=== PATIENT | female | born 2000 | race Two or more races ===

== ENCOUNTER 2024-07-17 11:19 | Outpatient (AMB) | payer MEDICAID, SELFPAY ==
--- NOTE | 2024-07-17 11:38 | OBCLNT_ITS ---
Vital Signs 07/17/24 11:39 Weight 111.584 kg Weight Measurement Method Standing Scale BP 121/77 Blood Pressure Source Automatic Cuff Blood Pressure Location Left Upper Arm Position Sitting Respiration 18 Pulse 101 H Pulse Source Monitor Temp 97.2 F Temp Source Oral Pulse Oximetry (%) 97 Oxygen Delivery Method Room Air Allergies/Home Meds Allergies & Medications Allergies No Known Allergies Allergy (Verified 07/17/24 11:40) Medication Reconciliation nifedipine 30 mg tablet,extended release 24 hr (Procardia XL) 30 mg PO QDAY 30 days #30 tabs 04/04/20 [Rx Confirmed 07/17/24] aspirin 81 mg tablet,delayed release (Adult Aspirin Regimen) 81 mg PO QDAY #60 tabs 07/17/24 [Rx] Intake Visit Data Collection New Patient or Established: New Patient not seen in past 3 years at [facility] (considered New) Reason for Visit:: OBI Seen by Clinical Staff ONLY (RN/MA): No Process Chemist Required: No Do You Feel Safe at Home: Yes Authorities Contacted: N/A PCP or OBGYN visit in last 3 months: Yes Hx Now: Yes Are you currently on any form of Control: No Pain Present Currently: No Pain Scale Used: Melton-Morfin/Numerical Pain scale:: 0 Smoking Status Smoking Status: Never smoker Questionnaires Covid-19 Vaccine Questionnaire Has patient been vacinated for Covid-19 Have you been vacinated for Covid-19: Yes PHQ-9 PHQ-2 Over the last 2 weeks, how often have you been bothered by any of the following problems? 1. Little interest or pleasure in doing things: not at all 2. Feeling down, depressed, or hopeless: not at all Total score: 0 PHQ-9 3. Trouble falling or staying asleep, or sleeping too much: Not at all 4. Feeling tired or having little energy: Not at all 5. Poor appetite or overeating: Not at all 6. Feeling bad about yourself - or that you are a failure or have let yourself or your family down: Not at all 7. Trouble concentrating on things, such as reading the newspaper or watching television: Not at all 8. Moving or speaking so slowly that other people could have noticed? - Or the opposite - being so fidgety or restless that you have been moving around a lot more than usual: not at all 9. Thoughts that you would be better off or of hurting yourself in some way: Not at all Total score: 0 If you checked off any problems, how difficult have these problems made it for you to do your work, take care of things at home, or get along with other people?: not difficult at all Source: Developed by Drs. Satnam Rodriguez, Nona Driscoll, Neptali Duran and colleagues, with an educational shelby from [employer]. Depression screen completed yes Social History Living Situation History Marital Status: Lives With: Family Housing: House Tobacco History Smoking Status: Never smoker Second Hand Smoke Exposure: No Alcohol History Alcohol Intake: Never Domestic Abuse History Do You Feel Safe at Home: Yes Past Medical History Past Medical History Have you ever been diagnosed with any of the following: Neurological Problems Seizures: No Cardiology Problems Congestive Heart Failure: No Respiratory Problems Chronic Obstructive Pulmonary Disease (COPD): No Asthma: Yes Stomache/Intestinal Problems Hepatitis: No Genital/Urinary Problems Renal Disease: No Endocrine Problems Diabetes Mellitus Type 1: No Diabetes Mellitus Type 2: No Other Problems Hospitalization: No Down Syndrome: No Developmental Delay: No Shingles: No Falls: No Blood Transfusions: No Blood Transfusion Reaction: No Anesthesia Reactions: No Organ Transplant: No Chemotherapy: No Radiation Therapy: No Hyperbaric Therapy: No MRSA: No VRSA: No Vancomycin-Resistant Enterococci: No Human Immunodeficiency Virus (HIV): No Chicken Pox: No Measles: No Mumps: No Rubella (Sami Measles): No Pertussis: No Clostridium Difficile: No Cancer: No History of Present Illness HPI Narrative 23-year-old 2 para 1 for initial OB appointment. Patient is a transfer from [facility]. Her last. December 17, 2023. This gives due date September 20, 2024. Patient reports that the due dates she is going by is September 27, 2024. She also states that at her last [facility] visit they told her her due date was September 24, 2024. So patient is 29 and 6 weeks by due date September 27, 2024. She has a history of a positive CF carrier with this . And she has a follow-up appointment August 14, 2024 to evaluate growth. Denies social habits. . Denies chronic illness. Patient reports that she had gestational hypertension with her last at the end of it. She also reports that prior to her LMP her family practice told her she was prediabetic. x 1 for arrest of de scent. Denies social habits. Reports good movement. Denies any complaints. Patient has an appointment with Dr. Pineda today. She will ask for release of records and will get Tdap. OB Initial Visit Menstrual History Menstrual reliability: definite Flow: normal Menstrual regularity: regular Monthly: Yes On control pills at conception: No OB History : 2 Para: 1 Hx # Pregnancies: 0 Hx Total # of Abortions (Spontaneous & Elective): 0 # of Living Children: 1 Delivery History 1st : date: 03/27/20 sex: male Delivery type: Delivery complications: none History of depression before or after : No Infection History & Risk Evaluation History of STDs: none HIV risk evaluation: low risk Hepatitis B risk evaluation: low risk Patient or partner has history of Genital Herpes: No Varicella/chicken pox status: immunized Genetic Screening & History Genetic Screening/Teratology Counseling - Includes patient, baby's father, or anyone in either family with: 1. Patient's age 35 years or older as of estimated date of delivery: No 2. Thalassemia (Arabic, Portuguese, Mediterranean, or Background); MCV less than 80: No 3. Neural Tube Defect (Meningomyelocele, Spina Bifida, or Anencephaly): No 4. Congenital Heart Defect: No 5. Down Syndrome: No 6. Timothy-Sachs (Ashkenazi Synagogue, Cajun, Northern Irish [place]): No 7. Royce Disease (Ashkenazi Synagogue): No 8. Familial Dysautonomia (Ashkenazi Synagogue): No 9. Sickle Cell Disease or Trait (): No 10. Hemophilia or other blood disorders: No 11. Muscular Dystrophy: No 12. Cystic Fibrosis: Yes (+cf carrier this ) 13. Monroe's Chorea: No 14. Mental Retardation/Autism: No 15. Other inherited genetic or chromosomal disorder: Yes (+CF carrier this ) 16. Maternal Metabolic Disorder (EG,TYPE 1 Diabetes, PKU): No 17. Patient or baby's father had a child with defects not listed above: No 18. Recurrent loss or a stillbirth: No 19. Medications (including supplements, vitamins, herbs or otc drugs)/illicit/recreational drugs/alcohol since last menstrual period: Yes 20. Any other: Yes (prenatals) Infection History 1. Live with someone with TB or exposed to TB: No 2. Rash or viral illness since last menstrual period: No 3. Hepatitis B,C: No Other (see comments) Source: [employer] Review of Systems Review of Systems Systems Reviewed: All systems reviewed, normal except as documented Exam General Limitations: no limitations General Appearance: alert, in no apparent distress, comfortable, cooperative, healthy appearing, well developed and well groomed Chest Chest inspection: Present normal inspection and symmetric chest wall rise Resp Respiratory exam: Present normal lung sounds bilaterally Card Cardiovascular exam: Present regular rate, normal rhythm and normal heart sounds Abdominal Abdominal exam: Present soft, normal bowel sounds and scar (low transverse) Psych Psychiatric exam: Present normal affect and normal mood Skin Skin exam: Present warm, dry, intact and normal color Assessment & Plan Diagnosis / Problem List (1) Encounter for supervision of other normal , third trimester: Status: Acute (2) Previous section: Status: Acute Plan Follow-up with maternal- medicine August 14. Patient will keep OB appointment with Dr. Edwin rosenbaum. Medical release for records. Obtain started on low-dose baby aspirin. Patient will get Tdap at a visit with Dr. Chapin rosenbaum discussed labor precautions. Increase fluids. Return in 2 weeks OB check Office Procedures OB Clinic LOC & Office Proc's Nursing/Assessment Patient Status: Initial/New Patient OB Clinic Nursing Assessment: BP Monitoring, Medication Reconciliation, Update PMH in EMR and Vital Signs OB Clinic Coordination of Care: Consent,records obtained, informed consent, Education Simp Pt/Fam and Staff clarify orders New Patient Charge New Patient Point Assignment: [id number] New Patient Point Charge: MANAGER TARGET Level 3 ([id number])
[2024-07-17 11:39] VITALS: BP 121/77; PULSE 101; RESP 18; TEMP 36.2; O2SAT 97
== END 2024-07-17 11:49 | disposition home or self-care (01) ==
LOC: HODSOBC 11:19
PROVIDERS: Supervising Provider Obstetrics & Gynecology; Visit Provider Advanced Practice Midwife
DX: O09.293 Supervision of pregnancy with other poor reproductive or obstetric history, third trimester (principal); Z3A.29 29 weeks gestation of pregnancy; O34.219 Maternal care for unspecified type scar from previous cesarean delivery; Z86.32 Personal history of gestational diabetes; Z87.59 Personal history of other complications of pregnancy, childbirth and the puerperium
CPT/HCPCS: 99203; G0463

== ENCOUNTER 2024-07-30 09:47 | Outpatient (AMB) | payer MEDICAID, SELFPAY ==
--- NOTE | 2024-07-30 10:00 | AMB.OBVISIT ---
Vital Signs 07/30/24 10:06 Weight 111.3 kg Weight Measurement Method Standing Scale BP 117/72 Blood Pressure Source Automatic Cuff Blood Pressure Location Left Upper Arm Position Sitting Respiration 18 Pulse 105 H Pulse Source Monitor Temp 96.8 F Temp Source Oral Pulse Oximetry (%) 98 Oxygen Delivery Method Room Air Allergies/Home Meds Allergies & Medications Allergies No Known Allergies Allergy (Verified 08/06/24 11:08) Medication Reconciliation nifedipine 30 mg tablet,extended release 24 hr (Procardia XL) 30 mg PO QDAY 30 days #30 tabs 04/04/20 [Rx Confirmed 08/06/24] aspirin 81 mg tablet,delayed release (Adult Aspirin Regimen) 81 mg PO QDAY #60 tabs 07/17/24 [Rx Confirmed 08/06/24] Intake Visit Data Collection New Patient or Established: New Patient not seen in past 3 years at [facility] (considered New) Reason for Visit:: - Routine follow-up OB appointment Seen by Clinical Staff ONLY (RN/MA): No Regional Commercial Sales Manager Required: No Do You Feel Safe at Home: Yes Authorities Contacted: N/A PCP or OBGYN visit in last 3 months: Yes Hx Now: Yes Are you currently on any form of Control: No Pain Present Currently: No Pain Scale Used: Melton-Morfin/Numerical Pain scale:: 0 Smoking Status Smoking Status: Never smoker Questionnaires Covid-19 Vaccine Questionnaire Has patient been vacinated for Covid-19 Have you been vacinated for Covid-19: Yes PHQ-9 PHQ-2 Over the last 2 weeks, how often have you been bothered by any of the following problems? 1. Little interest or pleasure in doing things: not at all 2. Feeling down, depressed, or hopeless: not at all Total score: 0 PHQ-9 3. Trouble falling or staying asleep, or sleeping too much: Not at all 4. Feeling tired or having little energy: Not at all 5. Poor appetite or overeating: Not at all 6. Feeling bad about yourself - or that you are a failure or have let yourself or your family down: Not at all 7. Trouble concentrating on things, such as reading the newspaper or watching television: Not at all 8. Moving or speaking so slowly that other people could have noticed? - Or the opposite - being so fidgety or restless that you have been moving around a lot more than usual: not at all 9. Thoughts that you would be better off or of hurting yourself in some way: Not at all Total score: 0 If you checked off any problems, how difficult have these problems made it for you to do your work, take care of things at home, or get along with other people?: not difficult at all Source: Developed by Drs. Satnam Rodriguez, Nona Driscoll, Neptali Duran and colleagues, with an educational shelby from [email or web address]. Depression screen completed yes Social History Living Situation History Lives With: Family Housing: House Tobacco History Smoking Status: Never smoker Second Hand Smoke Exposure: No Alcohol History Alcohol Intake: Never Domestic Abuse History Do You Feel Safe at Home: Yes Past Medical History Past Medical History Have you ever been diagnosed with any of the following: Neurological Problems Seizures: No Cardiology Problems Congestive Heart Failure: No Respiratory Problems Chronic Obstructive Pulmonary Disease (COPD): No Asthma: Yes Stomache/Intestinal Problems Hepatitis: No Genital/Urinary Problems Renal Disease: No Endocrine Problems Diabetes Mellitus Type 1: No Diabetes Mellitus Type 2: No Other Problems Hospitalization: No Down Syndrome: No Developmental Delay: No Shingles: No Falls: No Blood Transfusions: No Blood Transfusion Reaction: No Anesthesia Reactions: No Organ Transplant: No Chemotherapy: No Radiation Therapy: No Hyperbaric Therapy: No MRSA: No VRSA: No Vancomycin-Resistant Enterococci: No Human Immunodeficiency Virus (HIV): No Chicken Pox: No Measles: No Mumps: No Rubella (Frisian Measles): No Pertussis: No Clostridium Difficile: No Cancer: No History of Present Illness HPI Narrative - Marlene Gauthier is a 23-year-old presenting for a follow-up OB appointment at 32 weeks and 2 days gestation. - Patient transferred care from [facility] on December 17, 2023. - details: - Due date initially given as September 20, then adjusted to September 27 - Different due date of September 24 given at [facility] appointment - Patient is a positive cystic fibrosis carrier in this - Awaiting results of genetic testing for both patient and father of the baby - Testing was performed on July 14, 2024 - Results expected on August 07, 2024 - Obstetrical history: - One previous section in 2019 - Patient reports the is going good - Denies any specific complaints or concerns at this visit No contractions/ LOF/VB, reports good FM No SOSA/VC/RUQ/Epig pain Care OB Visit Log OB Flowsheet Initial Weight: Not Recorded Date <del>?</del> EGA Weight BP Alb Glu CTX Pres Fundal ht FHR Mov Dilation Station Effacement Hx Notes Visit Note 07/17/24 <del>?</del> 30w 3d 111.584 kg 121/77 absent unknown 30 151 active 23-year-old 2 para 1. 39 weeks 6. Transfer of care from Dr. Pineda's office. 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 Dr. Samson referred her to [facility] for follow-up. And patient has a follow-up visit with [facility] August 14. Last. According to patient was December 17, 2023. However patient reports that EDC per Dr. Samson and per maternal- medicine is September 27, 2024 medical release today. Patient will get Tdap with Dr. Samson. Discussed labor precautions. Keep maternal- medicine follow-up in [place]. Start low-dose baby aspirin. Patient reported that she has not had any abnormal labs with the . Return in 2 weeks OB check with OB because of previous . 07/30/24 <del>?</del> 32w 2d 111.3 kg 117/72 145 Marlene Gauthier, at 32 weeks and 2 days gestation, presents for routine follow-up OB care. Transferred from [facility] on 12/17/2023. Reports is progressing well with no current complaints. heart rate auscultated at 145 bpm. History of prior section in 2019. Multiple EDDs noted: 09/20, 09/24 (per MFM), and 09/27. Patient is a cystic fibrosis carrier; testing for the father was completed on 07/14/2024 with results pending by 08/07/2024. Recent labs reviewed, including 1-hour GTT of 70 mg/dL and normal serologies. Plan: Book date Follow up in 2 weeks, then weekly thereafter Await CF carrier screening results for father (due 08/07) Repeat growth evaluation with MFM scheduled for 08/14 Continue routine monitoring MICHELLE Calculator Estimated Delivery Date Method Current WG Current Estimate 09/22/24 LMP (Certain) 34w 1d Office Procedures OB Clinic LOC & Office Proc's Nursing/Assessment Patient Status: Initial/New Patient OB Clinic Nursing Assessment: BP Monitoring, Medication Reconciliation, Update PMH in EMR and Vital Signs OB Clinic Coordination of Care: Consent,records obtained, informed consent, Education Simp Pt/Fam, Lab and Imaging orders, Results/Orders obtained and Staff clarify orders Special Needs: Heart tones New Patient Charge New Patient Point Assignment: [id number] New Patient Point Charge: REFINERY PROCESS ENGINEER Level 4 ([id number]) Assessment & Plan Diagnosis / Problem List (1) Previous section: Status: Acute (2) Encounter for supervision of other normal , third trimester: Status: Acute Plan Problem List - , 32 weeks and 2 days gestation - Previous section - Cystic fibrosis carrier status Assessment - at 32 weeks 2 days gestation - History of previous section in 2019 - Positive cystic fibrosis carrier status - Multiple estimated due dates: September 20, September 24, and September 27 - labs from April 05, 2023: O positive blood type, hemoglobin A1C 5.7, rubella immune, VDRL non-reactive, HIV negative, GBS negative - Urine drug screen negative - One-hour glucose tolerance test result: 70 mg/dL - heart rate 145 bpm, noted as normal Plan - Book date: September 15 at 12:30 PM - Follow up in 2 weeks - After next appointment, follow up weekly - Await cystic fibrosis carrier screening results for patient and father of baby, expected on August 07 - Repeat appointment with MFM on August 14 to evaluate growth Educated the patient on labor signs, including regular contractions, lower back pain, and changes in vaginal discharge. Advised avoiding heavy lifting and getting adequate rest. Instructed to contact the office immediately if any signs occur. Discussed the importance of a balanced diet rich in folic acid, iron, and calcium, and provided a list of recommended and to-avoid foods. Emphasized avoiding high-sugar foods to reduce gestational diabetes risk. Encouraged hydration and frequent, small meals for energy..
[2024-07-30 10:06] VITALS: BP 117/72; PULSE 105; RESP 18; TEMP 36; O2SAT 98
== END 2024-07-30 10:20 | disposition home or self-care (01) ==
LOC: HODSOBC 09:47
PROVIDERS: PCP Obstetrics & Gynecology; Referring Provider Obstetrics & Gynecology; Supervising Provider Obstetrics & Gynecology; Visit Provider Obstetrics & Gynecology
DX: O09.293 Supervision of pregnancy with other poor reproductive or obstetric history, third trimester (principal); O34.219 Maternal care for unspecified type scar from previous cesarean delivery; O09.893 Supervision of other high risk pregnancies, third trimester; Z3A.32 32 weeks gestation of pregnancy; Z14.1 Cystic fibrosis carrier
CPT/HCPCS: 99204; G0463

== ENCOUNTER 2024-08-06 10:56 | Outpatient (AMB) | payer MEDICAID, SELFPAY ==
--- NOTE | 2024-08-06 11:03 | OBCLNT_ITS ---
Vital Signs 08/06/24 11:07 Height 1.63 m Height Method Stated Weight 113.2 kg Weight Measurement Method Standing Scale BMI 42.8 BP 137/83 H Blood Pressure Source Automatic Cuff Blood Pressure Location Left Upper Arm Position Sitting Respiration 18 Pulse 106 H Pulse Source Monitor Temp 97.2 F Temp Source Oral Pulse Oximetry (%) 98 Oxygen Delivery Method Room Air Allergies/Home Meds Allergies & Medications Allergies No Known Allergies Allergy (Verified 11/03/24 11:28) Medication Reconciliation Unobtainable 11/03/24 [History Confirmed 11/03/24] Intake Visit Data Collection New Patient or Established: Established Patient (seen at [facility] within 3 years) Reason for Visit:: OB CHECK FOLLOW UP Seen by Clinical Staff ONLY (RN/MA): No Store Coordinator Required: No Do You Feel Safe at Home: Yes Authorities Contacted: N/A PCP or OBGYN visit in last 3 months: Yes Date of Last PCP or OBGYN visit: 07/30/24 Hx Now: Yes Are you currently on any form of Control: No Pain Present Currently: No Pain Scale Used: Melton-Morfin/Numerical Pain scale:: 0 Smoking Status Smoking Status: Never smoker Questionnaires Covid-19 Vaccine Questionnaire Has patient been vacinated for Covid-19 Have you been vacinated for Covid-19: Yes PHQ-9 PHQ-2 Over the last 2 weeks, how often have you been bothered by any of the following problems? 1. Little interest or pleasure in doing things: not at all 2. Feeling down, depressed, or hopeless: not at all Total score: 0 PHQ-9 3. Trouble falling or staying asleep, or sleeping too much: Not at all 4. Feeling tired or having little energy: Not at all 5. Poor appetite or overeating: Not at all 6. Feeling bad about yourself - or that you are a failure or have let yourself or your family down: Not at all 7. Trouble concentrating on things, such as reading the newspaper or watching television: Not at all 8. Moving or speaking so slowly that other people could have noticed? - Or the opposite - being so fidgety or restless that you have been moving around a lot more than usual: not at all 9. Thoughts that you would be better off or of hurting yourself in some way: Not at all Total score: 0 If you checked off any problems, how difficult have these problems made it for you to do your work, take care of things at home, or get along with other people?: not difficult at all Source: Developed by Drs. Satnam Rodriguez, Nona Driscoll, Neptali Duran and colleagues, with an educational shelby from [employer]. 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 - Patient transferred care from Dr. Pineda to the current practice. - Finalized due date is September 24, based on maternal medicine ultrasound. - Patient is a known cystic fibrosis carrier. - Reports normal movement. No contractions/ LOF/VB, reports good FM No SOSA/VC/RUQ/Epig pain Exam General General Appearance: alert, in no apparent distress and healthy appearing Head Head exam: atraumatic Neck Neck exam: Present normal inspection and trachea midline Chest Chest inspection: Present normal inspection and symmetric chest wall rise External exam: Present normal external exam; Absent tenderness Neuro Neurological exam: Present oriented X3 Psych Psychiatric exam: Present normal affect and normal mood Office Procedures OB Clinic LOC & Office Proc's Nursing/Assessment Patient Status: Established Patient OB Clinic Nursing Assessment: Medication Reconciliation, Update PMH in EMR and Vital Signs OB Clinic Coordination of Care: Education Complex Pt/Fam, Consent,records obtained, informed consent and Staff clarify orders Special Needs: Heart tones Established Patient Charge Established Patient Point Assignment: 95 Established Patient Point Charge: EP Level 3 (80-115) Assessment & Plan Diagnosis / Problem List (1) Other acute postprocedural pain: Status: Acute (2) Hx of preeclampsia, prior , currently : Status: Acute (3) Previous section: Status: Acute Plan Problem List - , 33 weeks and 2 days - Cystic fibrosis carrier status Assessment - 1 para 1 at 33 weeks and 2 days gestation - Scheduled for repeat on September 17 at 12:30 PM - Cystic fibrosis carrier status confirmed for patient, father of child tested negative - heart rate 146 bpm, noted as normal Plan - Repeat scheduled for September 17 at 12:30 PM - Growth ultrasound with maternal medicine on August 29 - Follow-up appointment in 2 weeks - Weekly appointments to begin after the next follow-up
[2024-08-06 11:07] VITALS: BP 137/83; PULSE 106; RESP 18; TEMP 36.2; O2SAT 98; BMI 42.8
== END 2024-08-06 11:17 | disposition home or self-care (01) ==
LOC: HODSOBC 10:56
PROVIDERS: PCP Obstetrics & Gynecology; Referring Provider Obstetrics & Gynecology; Supervising Provider Obstetrics & Gynecology; Visit Provider Obstetrics & Gynecology
DX: O09.293 Supervision of pregnancy with other poor reproductive or obstetric history, third trimester (principal); O34.219 Maternal care for unspecified type scar from previous cesarean delivery; O09.893 Supervision of other high risk pregnancies, third trimester; Z3A.33 33 weeks gestation of pregnancy; Z14.1 Cystic fibrosis carrier; Z87.59 Personal history of other complications of pregnancy, childbirth and the puerperium
CPT/HCPCS: 99213; G0463

== ENCOUNTER 2024-08-21 14:54 | Outpatient (AMB) | payer MEDICAID, SELFPAY ==
[2024-08-21 15:15] VITALS: BP 117/80; PULSE 90; RESP 18; TEMP 36.4; O2SAT 97; BMI 42.4
--- NOTE | 2024-08-21 15:15 | OBCLNT_ITS ---
Vital Signs 08/21/24 15:15 Height 1.63 m Height Method Stated Weight 112.094 kg Weight Measurement Method Standing Scale BMI 42.4 BP 117/80 Blood Pressure Source Automatic Cuff Blood Pressure Location Right Upper Arm Position Sitting Respiration 18 Pulse 90 Pulse Source Monitor Temp 97.6 F Temp Source Temporal Artery Scan Pulse Oximetry (%) 97 Oxygen Delivery Method Room Air Allergies/Home Meds Allergies & Medications Allergies No Known Allergies Allergy (Verified 08/21/24 15:16) Medication Reconciliation nifedipine 30 mg tablet,extended release 24 hr (Procardia XL) 30 mg PO QDAY 30 days #30 tabs 04/04/20 [Rx Confirmed 08/21/24] aspirin 81 mg tablet,delayed release (Adult Aspirin Regimen) 81 mg PO QDAY #60 tabs 07/17/24 [Rx Confirmed 08/21/24] Intake Visit Data Collection New Patient or Established: Established Patient (seen at [facility] within 3 years) Reason for Visit:: OBC / GBS Seen by Clinical Staff ONLY (RN/MA): No Hand Developer Required: No Do You Feel Safe at Home: Yes Authorities Contacted: N/A PCP or OBGYN visit in last 3 months: Yes Date of Last PCP or OBGYN visit: 08/06/24 Hx Now: Yes Are you currently on any form of Control: No Pain Present Currently: No Smoking Status Smoking Status: Never smoker Questionnaires Covid-19 Vaccine Questionnaire Has patient been vacinated for Covid-19 Have you been vacinated for Covid-19: Yes PHQ-9 PHQ-2 Over the last 2 weeks, how often have you been bothered by any of the following problems? 1. Little interest or pleasure in doing things: not at all PHQ-9 3. Trouble falling or staying asleep, or sleeping too much: Not at all 4. Feeling tired or having little energy: Not at all 5. Poor appetite or overeating: Not at all 6. Feeling bad about yourself - or that you are a failure or have let yourself or your family down: Not at all 7. Trouble concentrating on things, such as reading the newspaper or watching television: Not at all 8. Moving or speaking so slowly that other people could have noticed? - Or the opposite - being so fidgety or restless that you have been moving around a lot more than usual: not at all 9. Thoughts that you would be better off or of hurting yourself in some way: Not at all If you checked off any problems, how difficult have these problems made it for you to do your work, take care of things at home, or get along with other people?: not difficult at all Source: Developed by Drs. Satnam Rodriguez, Nona Driscoll, Neptali Duran and colleagues, with an educational shelby from [employer]. 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 Patient has a history of prior delivery. No contractions, LOF, VB and reports good FM. Denies SOSA, VC, and epigastric pain. - Marlene Gauthier is a 23-year-old at 35 weeks and 3 days gestation presenting for a visit. - Patient transferred care from [facility] 2 hours prior to this visit. - Cystic fibrosis carrier test screening was positive in this . - Father of the baby tested negative for cystic fibrosis. - Adjusted due date is September 27. - History of previous section. - Scheduled for repeat on September 15 at 12:30 PM. - Patient reports: - No contractions - Active movement - Normal heart rate of 155 bpm noted during visit. Care OB Visit Log OB Flowsheet Initial Weight: Not Recorded Date -?-?--?-?-?-?-?-?-?-?-?-?- EGA Weight BP Alb Glu CTX Pres Fundal ht FHR Mov Dilation Station Effacement Hx Notes Visit Note 07/17/24 -?-?-?-?-?-?-?-?-?-?-?-?- 30w 3d 111.584 kg 121/77 absent unknown 30 151 active 23-year-old 2 para 1. 39 weeks 6. Transfer of care from Dr. Pineda's office. 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 Dr. Samson referred her to [facility] for follow-up. And patient has a follow-up visit with [facility] August 14. Last. According to patient was December 17, 2023. However patient reports that EDC per Dr. Samson and per maternal- medicine is September 27, 2024 medical release today. Patient will get Tdap with Dr. Samson. Discussed labor precautions. Keep maternal- medicine follow-up in [place]. Start low-dose baby aspirin. Patient reported that she has not had any abnormal labs with the . Return in 2 weeks OB check with OB because of previous . 07/30/24 -?-?-?-?-?-?-?-?-?-?-?-?- 32w 2d 111.3 kg 117/72 145 Marlene Gauthier, at 32 weeks and 2 days gestation, presents for routine follow-up OB care. Transferred from [facility] on 12/17/2023. Reports is progressing well with no current complaints. heart rate auscultated at 145 bpm. History of prior section in 2019. Multiple EDDs noted: 09/20, 09/24 (per M), and 09/27. Patient is a cystic fibrosis carrier; testing for the father was completed on 07/14/2024 with results pending by 08/07/2024. Recent labs reviewed, including 1-hour GTT of 70 mg/dL and normal serologies. Plan: Book date Follow up in 2 weeks, then weekly therea fter Await CF carrier screening results for f ather (due 08/07) Repeat growth evaluation with [facility] schedu led for 08/14 Continue routine monitoring 08/21/24 -?-?-?-?-?-?-?-?-?-?-?-?- 35w 3d 112.094 kg 117/80 at 35 weeks and 3 days gestation presents for routine visit. Transferred care from [facility] earlier today. Patient is a cystic fibrosis carrier; partner has tested negative. History of previous section. Adjusted MICHELLE is 09/27/24. No contractions, LOF, VB; reports good movement. FHT 155 bpm, normal. Plan: Problem List: 35w3d, cystic fi brosis carrier (partner negative), prior section. Repeat section scheduled for at 12:30 PM; patient to arrive at 10:00 AM. Continue weekly visits until delivery. Follow-up visit scheduled for next week. Routine counseling provided including labor and preeclampsia precautions, delivery preparation, and ongoing movement monitoring. MICHELLE Calculator Estimated Delivery Date Method Current WG Current Estimate 09/22/24 LMP (Certain) 35w 3d Exam General General Appearance: alert, in no apparent distress and healthy appearing Head Head exam: atraumatic Neck Neck exam: Present normal inspection and trachea midline Chest Chest inspection: Present normal inspection and symmetric chest wall rise External exam: Present normal external exam; Absent tenderness Neuro Neurological exam: Present oriented X3 Psych Psychiatric exam: Present normal affect and normal mood Office Procedures OB Clinic LOC & Office Proc's Nursing/Assessment Patient Status: Established Patient OB Clinic Nursing Assessment: Medication Reconciliation, Update PMH in EMR and Vital Signs OB Clinic Coordination of Care: Complex Care and Chronic Disease 1-5, Consent,records obtained, informed consent, Education Simp Pt/Fam, Lab and Imaging orders and Staff clarify orders Special Needs: Heart tones Established Patient Charge Established Patient Point Assignment: 130 Established Patient Point Charge: EP Level 4 (120-155) Assessment & Plan Diagnosis / Problem List (1) Hx of preeclampsia, prior , currently : Status: Acute (2) Previous section: Status: Acute (3) Encounter for supervision of other normal , third trimester: Status: Acute Plan Problem List - , 35 weeks and 3 days gestation - Cystic fibrosis carrier - Previous section Assessment at 35 weeks 3 days gestation presenting for routine visit. Patient is a known cystic fibrosis carrier, with negative partner screening. History of previous section. Adjusted due date is September 27. heart rate auscultated at 155 bpm, noted as normal. Patient reports no contractions and active movement. Scheduled for repeat section on September 15 at 1230. Plan - Repeat section scheduled for September 15 at 12:30 PM - Patient to arrive at the hospital at 10:00 AM on the day of the procedure - Weekly visits until delivery - Follow-up appointment scheduled for next week 1. Progress Reviewed gestational age, growth, and heart rate. Planned frequent visits (every 2 weeks until 36 weeks, then weekly). 2. Instructed patient to monitor movements and report decreases immediately. 3. Testing Counseled on routine third-trimester labs per guidelines. Discussed potential need for ultrasound or monitoring based on risk factors. 4. Preeclampsia Precaution Educated on preeclampsia signs: severe headache, vision changes, right upper quadrant pain, sudden swelling. Advised urgent reporting of symptoms and discussed blood pressure monitoring if high risk. 5. Labor Precautions Reviewed labor signs: regular contractions, pelvic pressure, back pain, bleeding, or fluid leakage. Instructed to seek immediate care for these symptoms. 6. Lifestyle and Delivery Preparation Reinforced vitamins, nutrition, and safe activity. Discussed plan, pain management, and . Advised on labor preparation (e.g., hospital bag) and expectations. 7. Psychosocial Support Assessed emotional well-being and offered resources for mental health or parenting support.
== END 2024-08-21 15:28 | disposition home or self-care (01) ==
LOC: HODSOBC 14:54
PROVIDERS: PCP Obstetrics & Gynecology; Referring Provider Obstetrics & Gynecology; Supervising Provider Obstetrics & Gynecology; Visit Provider Obstetrics & Gynecology
DX: O09.293 Supervision of pregnancy with other poor reproductive or obstetric history, third trimester (principal); Z3A.35 35 weeks gestation of pregnancy; O34.219 Maternal care for unspecified type scar from previous cesarean delivery; Z87.59 Personal history of other complications of pregnancy, childbirth and the puerperium; Z14.1 Cystic fibrosis carrier
CPT/HCPCS: 99214; G0463

== ENCOUNTER 2024-08-28 13:02 | Outpatient (AMB) | payer MEDICAID, SELFPAY ==
[2024-08-28 13:23] VITALS: BP 120/82; PULSE 101; RESP 20; TEMP 36.1; O2SAT 98; BMI 42.5
--- NOTE | 2024-08-28 13:23 | OBCLNT_ITS ---
Vital Signs 08/28/24 13:23 Height 1.63 m Height Method Stated Weight 113.171 kg Weight Measurement Method Standing Scale BMI 42.5 BP 120/82 Blood Pressure Source Automatic Cuff Blood Pressure Location Right Upper Arm Position Sitting Respiration 20 Pulse 101 H Pulse Source Monitor Temp 96.9 F Temp Source Oral Pulse Oximetry (%) 98 Oxygen Delivery Method Room Air Allergies/Home Meds Allergies & Medications Allergies No Known Allergies Allergy (Verified 08/28/24 13:24) Medication Reconciliation nifedipine 30 mg tablet,extended release 24 hr (Procardia XL) 30 mg PO QDAY 30 days #30 tabs 04/04/20 [Rx Confirmed 08/28/24] aspirin 81 mg tablet,delayed release (Adult Aspirin Regimen) 81 mg PO QDAY #60 tabs 07/17/24 [Rx Confirmed 08/28/24] Intake Visit Data Collection New Patient or Established: Established Patient (seen at [facility] within 3 years) Reason for Visit:: CARE Seen by Clinical Staff ONLY (RN/MA): No 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 1. Little interest or pleasure in doing things: not at all 2. Feeling down, depressed, or hopeless: not at all Total score: 0 PHQ-9 3. Trouble falling or staying asleep, or sleeping too much: Not at all 4. Feeling tired or having little energy: Not at all 5. Poor appetite or overeating: Not at all 6. Feeling bad about yourself - or that you are a failure or have let yourself or your family down: Not at all 7. Trouble concentrating on things, such as reading the newspaper or watching television: Not at all 8. Moving or speaking so slowly that other people could have noticed? - Or the opposite - being so fidgety or restless that you have been moving around a lot more than usual: not at all 9. Thoughts that you would be better off or of hurting yourself in some way : Not at all Total score: 0 Source: Developed by Drs. Satnam Rodriguez, Nona Driscoll, Neptali Duran and colleagues, with an educational shelby from [employer]. 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 Patient has a history of prior delivery. No contractions, LOF, VB and reports good FM. Denies SOSA, VC, and epigastric pain. - Marlene Gauthier is a 23-year-old at 36 weeks and 2 days gestation presenting for a routine visit. - Patient has a history of: - Cystic fibrosis carrier status - Previous section - Scheduled for repeat section on September 15, 2024 - Denies contractions - Reports active movement - Recently monitored at the hospital - Patient states everything looked fine there - heart rate noted to be 148 bpm, described as normal Care OB Visit Log OB Flowsheet Initial Weight: Not Recorded Date -?-?-?-?-?-?-?-?-?-?-?-?- EGA Weight BP Alb Glu CTX Pres Fundal ht FHR Mov Dilation Station Effacement Hx Notes Visit Note 07/17/24 -?-?-?-?-?-?-?-?-?-?-?-?- 30w 3d 111.584 kg 121/77 absent unknown 30 151 active 23-year-old 2 para 1. 39 weeks 6. Transfer of care from Dr. Pineda's office. 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 Dr. Samson referred her to [facility] for follow-up. And patient has a follow-up visit with [facility] August 14. Last. According to patient was December 17, 2023. However patient reports that EDC per Dr. Samson and per maternal- medicine is September 27, 2024 medical release today. Patient will get Tdap with Dr. Samson. Discussed labor precautions. Keep maternal- medicine follow-up in [place]. Start low-dose baby aspirin. Patient reported that she has not had any abnormal labs with the . Return in 2 weeks OB check with OB because of previous . 07/30/24 -?-?-?-?-?-?-?-?-?-?-?-?- 32w 2d 111.3 kg 117/72 145 Marleneyolanda Gauthier, at 32 weeks and 2 days gestation, presents for routine follow-up OB care. Transferred from [facility] on 12/17/2023. Reports is progressing well with no current complaints. heart rate auscultated at 145 bpm. History of prior section in 2019. Multiple EDDs noted: 09/20, 09/24 (per [facility]), and 09/27. Patient is a cystic fibrosis carrier; testing for the father was completed on 07/14/2024 with results pending by 08/07/2024. Recent labs reviewed, including 1-hour GTT of 70 mg/dL and normal serologies. Plan: Book date Follow up in 2 weeks, then weekly therea fter Await CF carrier screening results for f ather (due 08/07) Repeat growth evaluation with [facility] schedu led for 08/14 Continue routine monitoring 08/21/24 -?-?-?-?-?-?-?-?-?-?-?-?- 35w 3d 112.094 kg 117/80 at 35 weeks and 3 days gestation presents for routine visit. Transferred care from [facility] earlier today. Patient is a cystic fibrosis carrier; partner has tested negative. History of previous section. Adjusted MICHELLE is 09/27/24. No contractions, LOF, VB; reports good movement. FHT 155 bpm, normal. Plan: Problem List: 35w3d, cystic fi brosis carrier (partner negative), prior section. Repeat section scheduled for at 12:30 PM; patient to arrive at 10:00 AM. Continue weekly visits until delivery. Follow-up visit scheduled for next week. Routine counseling provided including labor and preeclampsia precautions, delivery preparation, and ongoing movement monitoring. 08/28/24 -?-?-?-?-?-?-?-?-?-?-?-?- 36w 3d 113.171 kg 120/82 155 active 23yo @36w2d, CF carrier, prior C/S, scheduled repeat C/S 09/15, no CTX/LOF/VB, FM+, recent monitoring reassuring, FHT 148 bpm. Plan: weekly visits, monitor for labor signs. MICHELLE Calculator Estimated Delivery Date Method Current WG Current Estimate 09/22/24 LMP (Certain) 36w 3d Office Procedures OB Clinic LOC & Office Proc's Nursing/Assessment Patient Status: Established Patient OB Clinic Nursing Assessment: Medication Reconciliation, Update PMH in EMR and Vital Signs OB Clinic Coordination of Care: Complex Care and Chronic Disease 1-5, Consent,records obtained, informed consent, Education Simp Pt/Fam, Lab and Imaging orders, Results/Orders obtained and Staff clarify orders Special Needs: Heart tones Established Patient Charge Established Patient Point Assignment: 135 Established Patient Point Charge: EP Level 4 (120-155) Assessment & Plan Diagnosis / Problem List (1) Hx of preeclampsia, prior , currently : Status: Acute (2) Previous section: Status: Acute (3) Encounter for supervision of other normal , third trimester: Status: Acute Plan Problem List - , 36 weeks and 2 days - Cystic fibrosis carrier - History of section Assessment [id number] presenting for routine visit. heart rate auscultated at 148 bpm, within normal range. Patient reports recent monitoring at hospital with normal findings. No contractions reported. movement noted as active. History significant for cystic fibrosis carrier status and previous section. Repeat section scheduled for September 15. Group B strep culture status to be confirmed. Plan - Continue weekly visits until scheduled - scheduled for September 15, 2024 - Patient to go to hospital if experiencing contractions or any concerning symptoms 1. Progress Reviewed gestational age, growth, and heart rate. Planned frequent visits (every 2 weeks until 36 weeks, then weekly). 2. Instructed patient to monitor movements and report decreases immediately. 3. Testing Counseled on routine third-trimester labs per guidelines. Discussed potential need for ultrasound or monitoring based on risk factors. 4. Preeclampsia Precaution Educated on preeclampsia signs: severe headache, vision changes, right upper quadrant pain, sudden swelling. Advised urgent reporting of symptoms and discussed blood pressure monitoring if high risk. 5. Labor Precautions Reviewed labor signs: regular contractions, pelvic pressure, back pain, bleeding, or fluid leakage. Instructed to seek immediate care for these symptoms. 6. Lifestyle and Delivery Preparation Reinforced vitamins, nutrition, and safe activity. Discussed plan, pain management, and . Advised on labor preparation (e.g., hospital bag) and expectations. 7. Psychosocial Support Assessed emotional well-being and offered resources for mental health or parenting support.
== END 2024-08-28 13:56 | disposition home or self-care (01) ==
LOC: HODSOBC 13:02
PROVIDERS: PCP Obstetrics & Gynecology; Referring Provider Obstetrics & Gynecology; Supervising Provider Obstetrics & Gynecology; Visit Provider Obstetrics & Gynecology
DX: O09.293 Supervision of pregnancy with other poor reproductive or obstetric history, third trimester (principal); O34.219 Maternal care for unspecified type scar from previous cesarean delivery; Z3A.36 36 weeks gestation of pregnancy; Z14.1 Cystic fibrosis carrier; Z87.59 Personal history of other complications of pregnancy, childbirth and the puerperium
CPT/HCPCS: 99214; G0463

== ENCOUNTER 2024-09-02 14:34 | Outpatient (AMB) | payer MEDICAID, SELFPAY ==
[2024-09-02 14:40] VITALS: BP 124/84; PULSE 92; RESP 18; TEMP 36.3; O2SAT 98; BMI 42.0
--- NOTE | 2024-09-02 14:40 | OBCLNT_ITS ---
Vital Signs 09/02/24 14:40 Height 1.63 m Height Method Stated Weight 111.811 kg Weight Measurement Method Standing Scale BMI 42.0 BP 124/84 Blood Pressure Source Automatic Cuff Blood Pressure Location Left Upper Arm Position Sitting Respiration 18 Pulse 92 Pulse Source Palpation Temp 97.4 F Temp Source Oral Pulse Oximetry (%) 98 Oxygen Delivery Method Room Air Allergies/Home Meds Allergies & Medications Allergies No Known Allergies Allergy (Verified 09/02/24 14:41) Medication Reconciliation nifedipine 30 mg tablet,extended release 24 hr (Procardia XL) 30 mg PO QDAY 30 days #30 tabs 04/04/20 [Rx Confirmed 09/02/24] aspirin 81 mg tablet,delayed release (Adult Aspirin Regimen) 81 mg PO QDAY #60 tabs 07/17/24 [Rx Confirmed 09/02/24] Intake Visit Data Collection New Patient or Established: Established Patient (seen at [facility] within 3 years) Reason for Visit:: OBC Seen by Clinical Staff ONLY (RN/MA): No Veterans Employment Representative Required: No Do You Feel Safe at Home: Yes Authorities Contacted: N/A PCP or OBGYN visit in last 3 months: Yes Hx Now: Yes Are you currently on any form of Control: No Pain Present Currently: No Pain Scale Used: Melton-Morfin/Numerical Pain scale:: 0 Smoking Status Smoking Status: Never smoker Questionnaires Covid-19 Vaccine Questionnaire Has patient been vacinated for Covid-19 Have you been vacinated for Covid-19: No PHQ-9 PHQ-2 Over the last 2 weeks, how often have you been bothered by any of the following problems? 1. Little interest or pleasure in doing things: not at all 2. Feeling down, depressed, or hopeless: not at all Total score: 0 PHQ-9 3. Trouble falling or staying asleep, or sleeping too much: Not at all 4. Feeling tired or having little energy: Not at all 5. Poor appetite or overeating: Not at all 6. Feeling bad about yourself - or that you are a failure or have let yourself or your family down: Not at all 7. Trouble concentrating on things, such as reading the newspaper or watching television: Not at all 8. Moving or speaking so slowly that other people could have noticed? - Or the opposite - being so fidgety or restless that you have been moving around a lot more than usual: not at all 9. Thoughts that you would be better off or of hurting yourself in some way: Not at all Total score: 0 If you checked off any problems, how difficult have these problems made it for you to do your work, take care of things at home, or get along with other people?: not difficult at all Source: Developed by Drs. Satnam Rodriguez, Nona Driscoll, Neptali Duran and colleagues, with an educational shelby from [employer]. 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 Patient has a history of prior delivery. No contractions, LOF, VB and reports good FM. Denies SOSA, VC, and epigastric pain. - Marlene Gauthier is a 24-year-old at 37 weeks and 1 day gestation presenting for routine care. - Patient was last seen one week ago with no complaints. - Current has been uncomplicated: - No signs of hypertension or pre-eclampsia - Patient reports feeling well with no new concerns - History of previous complicated by preeclampsia and difficult to control hypertension - Scheduled for repeat on September 15 Care OB Visit Log OB Flowsheet Initial Weight: Not Recorded Date -?-?-?-?-?-?-?-?-?-?-?-?- EGA Weight BP Alb Glu CTX Pres Fundal ht FHR Mov Dilation Station Effacement Hx Notes Visit Note 07/17/24 -?-?-?-?-?-?-?-?-?-?-?-?- 30w 3d 111.584 kg 121/77 absent unknown 30 151 active 23-year-old 2 para 1. 39 weeks 6. Transfer of care from Dr. Pineda's office. 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 Dr. Samson referred her to [facility] for follow-up. And patient has a follow-up visit with [facility] August 14. Last. According to patient was December 17, 2023. However patient reports that EDC per Dr. Samson and per maternal- medicine is September 27, 2024 medical release today. Patient will get Tdap with Dr. Samson. Discussed labor precautions. Keep maternal- medicine follow-up in [place]. Start low-dose baby aspirin. Patient reported that she has not had any abnormal labs with the . Return in 2 weeks OB check with OB because of previous . 07/30/24 -?-?-?-?-?-?-?-?-?-?-?-?- 32w 2d 111.3 kg 117/72 145 Marleneyolanda Gauthier, at 32 weeks and 2 days gestation, presents for routine follow-up OB care. Transferred from [facility] on 12/17/2023. Reports is progressing well with no current complaints. heart rate auscultated at 145 bpm. History of prior section in 2019. Multiple EDDs noted: 09/20, 09/24 (per [facility]), and 09/27. Patient is a cystic fibrosis carrier; testing for the father was completed on 07/14/2024 with results pending by 08/07/2024. Recent labs reviewed, including 1-hour GTT of 70 mg/dL and normal serologies. Plan: Book date Follow up in 2 weeks, then weekly therea fter Await CF carrier screening results for f ather (due 08/07) Repeat growth evaluation with [facility] schedu led for 08/14 Continue routine monitoring 08/21/24 -?-?-?-?-?-?-?-?-?-?-?-?- 35w 3d 112.094 kg 117/80 at 35 weeks and 3 days gestation presents for routine visit. Transferred care from [facility] earlier today. Patient is a cystic fibrosis carrier; partner has tested negative. History of previous section. Adjusted MICHELLE is 09/27/24. No contractions, LOF, VB; reports good movement. FHT 155 bpm, normal. Plan: Problem List: 35w3d, cystic fi brosis carrier (partner negative), prior section. Repeat section scheduled for at 12:30 PM; patient to arrive at 10:00 AM. Continue weekly visits until delivery. Follow-up visit scheduled for next week. Routine counseling provided including labor and preeclampsia precautions, delivery preparation, and ongoing movement monitoring. 08/28/24 -?-?-?-?-?-?-?-?-?-?-?-?- 36w 3d 113.171 kg 120/82 155 active 23yo @36w2d, CF carrier, prior C/S, scheduled repeat C/S 09/15, no CTX/LOF/VB, FM+, recent monitoring reassuring, FHT 148 bpm. Plan: weekly visits, monitor for labor signs. 09/02/24 -?-?-?-?-?-?-?-?-?-?-?-?- 37w 1d 111.811 kg 124/84 absent cephalic 145 active @ 37w1d, hx preeclampsia and vwsgmhjlz-rf-orksgaf HTN in prior , currently normotensive and asymptomatic. FHT 140 bpm, NST reactive, BPP 8/8, DAY 6.5. Scheduled repeat 09/15. Plan: f/u in 1 week for final v isit with instructions. Encourage walking (5?15 min intervals), low-salt diet, and ongoing movement monitoring. MICHELLE Calculator Estimated Delivery Date Method Current WG Current Estimate 09/22/24 LMP (Certain) 37w 2d Results Objective Imaging: Laboratory, Imaging, and Diagnostic Test Results - Date: SunSep 02 2024 - NST: Reactive strip - Biophysical Profile: 8 out of 8 - DAY: 6.5 Exam General General Appearance: alert, in no apparent distress and healthy appearing Head Head exam: atraumatic Neck Neck exam: Present normal inspection and trachea midline Chest Chest inspection: Present normal inspection and symmetric chest wall rise External exam: Present normal external exam; Absent tenderness Neuro Neurological exam: Present oriented X3 Psych Psychiatric exam: Present normal affect and normal mood Office Procedures OB Clinic LOC & Office Proc's Nursing/Assessment Patient Status: Established Patient OB Clinic Nursing Assessment: Medication Reconciliation, Update PMH in EMR and Vital Signs OB Clinic Coordination of Care: Consent,records obtained, informed consent, Education Simp Pt/Fam, Lab and Imaging orders and Staff clarify orders Special Needs: Heart tones Established Patient Charge Established Patient Point Assignment: 105 Established Patient Point Charge: EP Level 3 (80-115) Assessment & Plan Diagnosis / Problem List (1) Hx of preeclampsia, prior , currently : Status: Acute (2) Previous section: Status: Acute (3) Encounter for supervision of other normal , third trimester: Status: Acute Plan Problem List - , 37 weeks and 1 day - History of preeclampsia - History of difficult to control hypertension Assessment at 37 weeks 1 day gestation presenting for routine care. Patient has a history of preeclampsia and begngjrxe-ia-rqfhdzo hypertension in prior , but current has been uncomplicated with no signs of hypertension or preeclampsia. Recent NST was reactive with 8/8 biophysical profile and DAY of 6.5. Scheduled for repeat section on September 15. Plan - Scheduled for repeat on September 15 - One more visit scheduled for next week - Provider to give instructions and necessary information at next visit - Patient advised to stay active, walk 5-10-15 minutes at a time - Patient advised to watch salt intake to avoid affecting blood pressure - Follow up appointment in one week 1. Progress Reviewed gestational age, growth, and heart rate. Planned frequent visits (every 2 weeks until 36 weeks, then weekly). 2. Instructed patient to monitor movements and report decreases immediately. 3. Testing Counseled on routine third-trimester labs per guidelines. Discussed potential need for ultrasound or monitoring based on risk factors. 4. Preeclampsia Precaution Educated on preeclampsia signs: severe headache, vision changes, right upper quadrant pain, sudden swelling. Advised urgent reporting of symptoms and discussed blood pressure monitoring if high risk. 5. Labor Precautions Reviewed labor signs: regular contractions, pelvic pressure, back pain, bleeding, or fluid leakage. Instructed to seek immediate care for these symptoms. 6. Lifestyle and Delivery Preparation Reinforced vitamins, nutrition, and safe activity. Discussed plan, pain management, and . Advised on labor preparation (e.g., hospital bag) and expectations. 7. Psychosocial Support Assessed emotional well-being and offered resources for mental health or parenting support.
== END 2024-09-02 15:09 | disposition home or self-care (01) ==
LOC: HODSOBC 14:34
PROVIDERS: PCP Obstetrics & Gynecology; Referring Provider Obstetrics & Gynecology; Supervising Provider Obstetrics & Gynecology; Visit Provider Obstetrics & Gynecology
DX: O09.293 Supervision of pregnancy with other poor reproductive or obstetric history, third trimester (principal); O34.219 Maternal care for unspecified type scar from previous cesarean delivery; Z87.59 Personal history of other complications of pregnancy, childbirth and the puerperium; Z3A.37 37 weeks gestation of pregnancy
CPT/HCPCS: 99213; G0463

== ENCOUNTER 2024-09-09 09:19 | Outpatient (RCR) | payer MEDICAID, SELFPAY ==
--- NOTE | 2024-08-28 10:47 | XR_ITS ---
Examination: Biophysical profile, ultrasound Date and time of exam: August 28, 2024 1128 hours INDICATIONS: Diagnosis history preeclampsia Technique: Multiple transabdominal sonographic images of the pelvis abdomen obtained. Attention is directed to the breathing movement, gross body movement, amniotic fluid volume and tone. Findings: Amniotic fluid index 12.2 cm Total biophysical profile is 8 of 8. breathing movement is 2. Gross body movement is 2. tone is 2. Qualitative amniotic fluid volume is 2 Impression: Biophysical profile is 8 of 8.
[2024-08-28 11:54] VITALS: BP 109/70; PULSE 108; RESP 16; TEMP 36.8
--- NOTE | 2024-09-02 10:22 | XR_ITS ---
Examination: Biophysical profile, ultrasound Date and time of exam: September 02, 2024 1025 hours INDICATIONS: Preeclampsia of diagnosis Technique: Multiple transabdominal sonographic images of the pelvis abdomen obtained. Attention is directed to the breathing movement, gross body movement, amniotic fluid volume and tone. Findings: Amniotic fluid index 6.5 cm Total biophysical profile is 8 of 8. breathing movement is 2. Gross body movement is 2. tone is 2. Qualitative amniotic fluid volume is 2 Impression: Biophysical profile is 8 of 8.
[2024-09-02 10:48] VITALS: BP 113/61; PULSE 88; RESP 16; TEMP 36.8
--- NOTE | 2024-09-09 09:26 | XR_ITS ---
Examination: Biophysical profile, ultrasound Date and time of exam: September 09, 2024 0939 hours INDICATIONS: Diagnosis preeclampsia of Technique: Multiple transabdominal sonographic images of the pelvis abdomen obtained. Attention is directed to the breathing movement, gross body movement, amniotic fluid volume and tone. Findings: Amniotic fluid index 12.3 cm Total biophysical profile is 8 of 8. breathing movement is 2. Gross body movement is 2. tone is 2. Qualitative amniotic fluid volume is 2 Impression: Biophysical profile is 8 of 8.
[2024-09-09 10:10] VITALS: BP 111/69; PULSE 92; RESP 16; TEMP 36.7
== END 2024-09-09 23:59 | disposition home or self-care (01) ==
LOC: S4S1 09:19
PROVIDERS: Referring Provider Obstetrics & Gynecology; Visit Provider Obstetrics & Gynecology
DX: O09.293 Supervision of pregnancy with other poor reproductive or obstetric history, third trimester (principal); Z3A.38 38 weeks gestation of pregnancy; Z98.891 History of uterine scar from previous surgery
CPT/HCPCS: 59025; 76819

== ENCOUNTER 2024-09-12 10:51 | Outpatient (AMB) | payer MEDICAID, SELFPAY ==
[2024-09-12 11:10] VITALS: BP 118/83; PULSE 98; RESP 17; TEMP 36.4; O2SAT 97; BMI 42.8
--- NOTE | 2024-09-12 11:10 | OBCLNT_ITS ---
Vital Signs 09/12/24 11:10 Height 1.63 m Height Method Stated Weight 113.852 kg Weight Measurement Method Standing Scale BMI 42.8 BP 118/83 Blood Pressure Source Automatic Cuff Blood Pressure Location Right Upper Arm Position Sitting Respiration 17 Pulse 98 Pulse Source Monitor Temp 97.6 F Temp Source Temporal Artery Scan Pulse Oximetry (%) 97 Oxygen Delivery Method Room Air Allergies/Home Meds Allergies & Medications Allergies No Known Allergies Allergy (Verified 09/12/24 11:15) Intake Visit Data Collection New Patient or Established: Established Patient (seen at [facility] within 3 years) Reason for Visit:: OBC Seen by Clinical Staff ONLY (RN/MA): No Employment Program Representative Required: No Do You Feel Safe at Home: Yes Authorities Contacted: N/A PCP or OBGYN visit in last 3 months: Yes Date of Last PCP or OBGYN visit: 09/09/24 Hx Now: Yes Are you currently on any form of Control: No Pain Present Currently: No Pain Scale Used: Melton-Morfin/Numerical Pain scale:: 0 Smoking Status Smoking Status: Never smoker Questionnaires Covid-19 Vaccine Questionnaire Has patient been vacinated for Covid-19 Have you been vacinated for Covid-19: No PHQ-9 PHQ-2 Over the last 2 weeks, how often have you been bothered by any of the following problems? 1. Little interest or pleasure in doing things: not at all 2. Feeling down, depressed, or hopeless: not at all Total score: 0 PHQ-9 3. Trouble falling or staying asleep, or sleeping too much: Not at all 4. Feeling tired or having little energy: Not at all 5. Poor appetite or overeating: Not at all 6. Feeling bad about yourself - or that you are a failure or have let yourself or your family down: Not at all 7. Trouble concentrating on things, such as reading the newspaper or watching television: Not at all 8. Moving or speaking so slowly that other people could have noticed? - Or the opposite - being so fidgety or restless that you have been moving around a lot more than usual: not at all 9. Thoughts that you would be better off or of hurting yourself in some way: Not at all Total score: 0 If you checked off any problems, how difficult have these problems made it for you to do your work, take care of things at home, or get along with other people?: not difficult at all Source: Developed by Drs. Satnam Rodriguez, Nona Driscoll, Neptali Duran and colleagues, with an educational shelby from [employer]. 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 Patient has a history of prior delivery. No contractions, LOF, VB and reports good FM. Denies SOSA, VC, and epigastric pain. - Marlene Gauthier is a 24-year-old female, 2 para 1, at 38 weeks and 4 days gestation presenting for a routine visit. - She is scheduled for a repeat section on 09/17/2024 at 39 weeks and 2 days gestation. - Patient has a history of severe preeclampsia in a previous . - Current has been uncomplicated. - Patient reports: - Baby is active - No current complaints or concerns - Recent life changes: - Moved to [place] for a larger living space due to the upcoming - Partner accompanies her to appointments due to the long drive Exam General General Appearance: alert, in no apparent distress and healthy appearing Head Head exam: atraumatic Neck Neck exam: Present normal inspection and trachea midline Chest Chest inspection: Present normal inspection and symmetric chest wall rise External exam: Present normal external exam; Absent tenderness Neuro Neurological exam: Present oriented X3 Psych Psychiatric exam: Present normal affect and normal mood Office Procedures OB Clinic LOC & Office Proc's Nursing/Assessment Patient Status: Established Patient OB Clinic Nursing Assessment: Medication Reconciliation, Update PMH in EMR and Vital Signs OB Clinic Coordination of Care: Complex Care and Chronic Disease 1-5, Consent,records obtained, informed consent, Education Simp Pt/Fam and Staff clarify orders Special Needs: Heart tones Established Patient Charge Established Patient Point Assignment: 115 Established Patient Point Charge: EP Level 3 (80-115) Assessment & Plan Diagnosis / Problem List (1) Hx of preeclampsia, prior , currently : Status: Acute (2) Previous section: Status: Acute Plan Problem List - , 38 weeks and 4 days - History of severe preeclampsia in previous - Scheduled for repeat section Assessment at 38 weeks and 4 days gestation, presenting for routine visit. Patient is scheduled for repeat section at 39 weeks and 2 days. History of severe preeclampsia in previous , but current has been uncomplicated. heart rate noted to be 160-155 bpm, which is within normal range. Patient reports good movement. Patient recently relocated to [place], which is a considerable distance from the healthcare facility. Plan - Scheduled for repeat on 09-17-2024 at 39 weeks and 2 days - Patient instructed to not eat or drink after midnight the night before surgery (Sunday night) - No food, drink, medicine, or vitamins after midnight - Take a shower and clean the surgical area before the procedure - [place] at the hospital at 10:30 AM, 2 hours before the scheduled surgery time - One adult person allowed in the operating room during the procedure - In case of emergency contractions, patient advised to go to the nearest hospital 1. Progress Reviewed gestational age, growth, and heart rate. Planned frequent visits (every 2 weeks until 36 weeks, then weekly). 2. Instructed patient to monitor movements and report decreases immediately. 3. Testing Counseled on routine third-trimester labs per guidelines. Discussed potential need for ultrasound or monitoring based on risk factors. 4. Preeclampsia Precaution Educated on preeclampsia signs: severe headache, vision changes, right upper quadrant pain, sudden swelling. Advised urgent reporting of symptoms and discussed blood pressure monitoring if high risk. 5. Labor Precautions Reviewed labor signs: regular contractions, pelvic pressure, back pain, bleeding, or fluid leakage. Instructed to seek immediate care for these symptoms. 6. Lifestyle and Delivery Preparation Reinforced vitamins, nutrition, and safe activity. Discussed plan, pain management, and . Advised on labor preparation (e.g., hospital bag) and expectations. 7. Psychosocial Support Assessed emotional well-being and offered resources for mental health or parenting support.
== END 2024-09-12 11:39 | disposition home or self-care (01) ==
LOC: HODSOBC 10:51
PROVIDERS: PCP Obstetrics & Gynecology; Referring Provider Obstetrics & Gynecology; Supervising Provider Obstetrics & Gynecology; Visit Provider Obstetrics & Gynecology
DX: O09.293 Supervision of pregnancy with other poor reproductive or obstetric history, third trimester (principal); O34.219 Maternal care for unspecified type scar from previous cesarean delivery; Z87.59 Personal history of other complications of pregnancy, childbirth and the puerperium; Z3A.38 38 weeks gestation of pregnancy
CPT/HCPCS: 99213; G0463

== ENCOUNTER 2024-09-17 10:22 | Inpatient (IN) | payer MEDICAID, SELFPAY ==
[2024-09-17] VITALS (43 sets, daily range): BP systolic 114–142; BP diastolic 74–103; PULSE 67–111; RESP 12–26; TEMP 36.4–37; O2SAT 92–100; BMI 44.1
--- NOTE | 2024-09-17 10:46 | PD.LDHP ---
Documentation for date of: 09/17/24 OB Labor/Induct. HPI History of Present Illness Chief complaint: Schedule repeat low-transverse : 2 Para: 1 Term pregnancies: 0 pregnancies: 0 Living children: 1 History of Abortions: Spontaneous and Elective: 0 History of sections: Yes History of : No MICHELLE: 09/22/24 Gestational Age (weeks): 39 Gestational Age (days): 2 History of present illness: Marlene Gauthier is a 24-year-old female, , presenting at 39 weeks and 2 days gestation for a scheduled repeat . She has a history of severe preeclampsia in her previous delivery, but her current has been uncomplicated. The patient's estimated due date is September 22, 2024, based on her last menstrual period of December 17, 2023. She transferred care to this office in the third trimester from Dr. Pineda at [facility]. Marlene is currently taking aspirin and Procardia 30 XL for chronic hypertension. Marlene denies any contractions, leakage of fluid, or vaginal bleeding. She reports adequate movements. The patient also denies any preeclampsia symptoms, including headache, right upper quadrant pain, or epigastric pain. Medications and Supplements - Aspirin - Procardia 30 XL - For chronic hypertension Review of Systems General: Negative for fever, chills. Cardiovascular: Negative for contractions. Gastrointestinal: Negative for right upper quadrant pain, epigastric pain. Genitourinary: Negative for leakage of fluid, vaginal bleeding. Neurological: Negative for headache. History of Present Dating criteria: based on LMP only Adequate Care: Yes Past Medical History Surgical History SURGICAL: Positive Section Meds Home Medications and Allergies Allergies Allergy/AdvReac Type Severity Reaction Status Date / Time No Known Allergies Allergy Verified 09/12/24 11:15 OB Exam Physical Exam Vital signs: Pulse BP 98 123/82 09/17/24 10:45 09/17/24 10:45 Constitutional Constitutional: no acute distress Routine HEENT Exam Head: Present normocephalic and atraumatic Eye: Present EOMI and PERRL ENT: Present mucous membranes moist Routine Neck Exam Neck: Present supple and trachea midline Routine Cardiovascular Exam Cardiovascular: Present RRR Routine Abdominal Exam Abdominal: Present soft and normoactive bowel sounds Detailed Labor and Delivery Exam Dilation (cm): 0 Effacement (%): 0 Presentation: Vertex Membranes: intact Baseline heart rate: 140 monitor accelerations: 15x15 monitor decelerations: None correction variability: Average (6-10) Routine Extremities Exam Extremities: Present full ROM Routine Skin Exam Skin: Present intact, dry and warm Routine Neurological Exam Neurological: Present alert, oriented X3 and CN II-XII intact Routine Psychiatric Exam Psychiatric: Present normal affect and normal thought process OB Assessment & Plan Assessment and Plan (1) Hx of preeclampsia, prior , currently : Status: Acute (2) Previous section: Status: Acute Assessment and plan: Marlene Gauthier is a 24-year-old female at 39 weeks and 2 days gestation presenting for scheduled repeat with a history of severe preeclampsia in her previous delivery. Scheduled repeat Assessment: Patient is a 24-year-old at 39 weeks and 2 days gestation presenting for scheduled repeat . Estimated due date is 09/22/2024 based on last menstrual period of 12/17/2023. Current has been uncomplicated. Patient denies contractions, leakage of fluid, vaginal bleeding, and preeclampsia symptoms. Fundal height is 40 cm. heart tones show baseline of 135 with moderate variability, accelerations present, and no decelerations. Plan: - Admit to inpatient status - Establish IV access with LR at 125 cc/hr for maintenance - Send labs: CBC, type and screen, RPR, and preeclampsia panel - Administer Ancef 2 grams within 60 minutes prior to surgery start - Preoptimize with Bicitra as required by anesthesia provider - Initiate tranexamic acid immediately after cord clamping - Implement hemorrhage precautions due to aspirin use - Proceed with scheduled repeat at 12:30 PM Chronic hypertension Assessment: Patient has a history of chronic hypertension and is currently taking Procardia 30 XL for management. Plan: - Continue Procardia 30 XL (dose and frequency not specified)
[2024-09-17 11:55] LABS: Collection Type, Urine Clean Catch
[2024-09-17 12:00] LABS: Basophils % (Auto) 0 % (0-2.5); Eosinophils # (Auto) 0.1 Thou/mm3 (0.0-0.5); Eosinophils % (Auto) 1 % (0-10); Hematocrit 35.7 % (36.0-46.0); Hemoglobin 12.4 g/dL (12.0-16.0); Immature Granulocytes % (Auto) 0 % (0-0); Immature Granulocytes Auto 0.03 Thou/mm3 (0.00-0.00); Lymphocytes # (Auto) 1.6 Thou/mm3 (1.0-4.8); Lymphocytes % (Auto) 22 % (10-50); Mean Corpuscular HGB Conc 34.7 g/dl (31.0-37.0); Mean Corpuscular Hemoglobin 28.1 pg (25.0-35.0); Mean Corpuscular Volume 81 fL (80-100); Monocytes # (Auto) 0.4 Thou/mm3 (0.0-0.8); Monocytes % (Auto) 5 % (0-12); Neutrophils # (Auto) 5.2 Thou/mm3 (1.8-7.7); Neutrophils % (Auto) 71 % (37-80); Nucleated Red Blood Cell % 0 /100 WBC (0); Platelet Count 216 Thou/mm3 (140-440); Red Blood Count 4.42 Miln/mm3 (4.00-5.20); White Blood Count 7.3 Thou/mm3 (3.6-11.0)
[2024-09-17 12:10] LABS: Bacteria,Urine Rare; Bilirubin,Urine Negative (Negative); Blood,Urine Negative (Negative); Clarity,Urine Clear (Clear/Hazy); Color,Urine Lt-Yellow (Lt Yel-Yel); Glucose, Urine Negative (Negative); Ketones,Urine 1+ (Negative); Leukocyte Esterase,Urine Negative (Negative); Nitrite,Urine Negative (Negative); PH,Urine 6.5 (5.0-7.0); Protein,Urine Negative (Neg - Trace); RBC,Urine 3 /hpf (0-3); Squamous Epithelial Cell,Urine 2 /hpf (0-5); Urobilinogen,Urine Negative mg/dL (0.0-1.0); WBC,Urine 2 /hpf (0-5)
[2024-09-17 12:22] LABS: Fibrinogen 567 mg/dL (175-375); Partial Thromboplastin Time 31.7 Seconds (22.0-36.0); Prothrombin Time 10.7 Seconds (9.0-12.2)
[2024-09-17 12:39] LABS: Syphilis Nonreactive (Nonreactive)
[2024-09-17] MEDS: FAMOTIDINE INJ 10 MG/ML VIAL 2 ML 20 MG IV (12:40)
[2024-09-17] MEDS: CITRIC ACID/SODIUM CITR 15 ML UDC (BICITRA) 30 ML PO (12:40)
[2024-09-17] MEDS: ceFAZolin/D5W 2 GM IV 2 GM/100 ML BAG IV (12:40)
[2024-09-17 12:42] LABS: Alanine Aminotransferase 7 U/L (10-49); Albumin/Globulin Ratio 1.5 (1.2-2.2); Alkaline Phosphatase 169 U/L (46-116); Anion Gap 12 (7-16); Aspartate Amino Transferase 13 U/L (0-34); BUN/Creatinine Ratio 12 Ratio (12-20); Bilirubin,Total 0.3 mg/dL (0.3-1.2); Blood Urea Nitrogen 6 mg/dL (9-23); Calcium 8.9 mg/dL (8.3-10.6); Calcium (Corrected) 8.9 mg/dL (8.5-10.1); Carbon Dioxide 20.1 mMol/L (20.0-31.0); Chloride 106 mMol/L (98-107); Creatinine (Component) 0.5 mg/dL (0.6-1.3); Estimated Creatinine Clearance 208.1 mL/min (>60); Globulin 2.6 gm/dL (2.3-3.5); Glucose 74 mg/dL (74-106); Osmolality,Calculated 272 (275-295); Potassium 3.8 mMol/L (3.4-5.1); Sodium 138 mMol/L (136-145); Total Protein 6.6 gm/dL (5.7-8.2); Uric Acid 4.1 mg/dL (3.1-7.8); eGFR > 60 See Note
[2024-09-17] MEDS: RINGERS LACTATED 1000 ML 1,000 ML 100 ML IV (12:43)
--- NOTE | 2024-09-17 12:55 | ESOP_ITS ---
Operative Note - RADIO MESSAGE ROUTER Procedure Date of procedure: 09/17/24 Procedure Performed: Repeat low-transverse section Indication: 24-year-old -0-0-1 at 39 weeks and 2 days Previous section Gestational hypertension History of severe preeclampsia in prior in the . Anesthesia type: Spinal Procedure description: Informed consent was obtained. The patient was brought to the operating room and identified using two patient identifiers. She was placed in the supine position, and spinal anesthesia was administered. After confirming adequate anesthesia, the abdomen and perineum were prepped and draped in the usual sterile fashion. A Meza catheter was inserted for continuous bladder drainage. A Pfannenstiel skin incision was made using a scalpel and carried through the subcutaneous tissue, which exhibited significant scar tissue. The dissection proceeded carefully due to noted thickening of the rectus fascia. The rectus fascia was dissected with difficulty from the underlying rectus muscles due to dense fibrosis. The rectus muscles were then in the midline, and the peritoneum, noted to be thickened, was entered bluntly using the surgeon?s finger. Upon entering the abdominal cavity, dense bands of adhesion were observed extending from the peritoneum to the anterior uterine surface. These were carefully taken down using electrocautery to achieve adequate exposure of the lower uterine segment. The bladder flap was developed, and a low transverse uterine incision (Fco Hyde) was made and extended bluntly. The amniotic membranes were ruptured, and clear fluid was released. The fetus was in vertex presentation. The head was gently elevated without the use of vacuum. No nuchal cord or other abnormalities were noted. The shoulders and body were delivered with gentle fundal pressure. The umbilical cord was doubly clamped and cut, and the infant was handed to the team. Cord gases were obtained. The placenta was delivered with gentle traction on the cord. The uterine cavity was cleared of membranes and clots. The hysterotomy angles were secured with Allis clamps. The uterine incision was closed in two layers using #1 Monocryl: the first layer approximated the myometrium in a running locked fashion, and the second layer imbricated the serosa and myometrium. Upon completion, some hemorrhage was noted along the hysterotomy, which was controlled with [id number] sutures using 2-0 Monocryl. Final inspection revealed adequate hemostasis. Uterine tone was noted to be intermittently sloppy, patient was given Hemabate intra uterine and 2 g of tranexamic acid. The peritoneal cavity was irrigated, and the Lee retractor was removed. The peritoneum and rectus muscles were reapproximated. The rectus fascia was closed using 0 PDS in a running fashion. The subcutaneous tissue was irrigated, and hemostasis was confirmed. The skin was closed using 4-0 Monocryl in a subcuticular fashion and reinforced with Dermabond and a PreNeo dressing. The patient was cleaned, undraped, and transferred to the recovery room in stable and awake condition. She tolerated the procedure well. No complications were encountered. All counts were correct ?2. Specimen: none Estimated blood loss (ml): 700 Complications: none Surgical staff Operation Date: 09/17/24 12:45 <No data on this case meets the specified criteria> Diagnosis Discharge Diagnosis (1) Hx of preeclampsia, prior , currently : Status: Acute (2) Previous section: Status: Acute Problem List Completed Was Problem List Reviewed/Reconciled?: Yes
[2024-09-17] MEDS: OXYTOCIN in NS 20 units 20 UNIT/1,000 ML BAG 125 UNIT IV (17:05)
--- NOTE | 2024-09-17 18:44 | PC.NURSE ---
09/17/2024 1841: MD Reyes updated on pt. status. Pt. is saturating a small pad every hour. Pts. last bp at 1600 was 128/81 and she is aysymptomatic. Orders received for methergine 0.2mg and update MD in one hour on pt. status.
[2024-09-17] MEDS: METHYLERGONOVINE 0.2 MG TABLET PO (18:45)
[2024-09-17] MEDS: KETOROLAC INJ 30 MG/ML VIAL IVP (18:47)
--- NOTE | 2024-09-17 18:48 | PC.NURSE ---
09/17/2024 1841: MD Reyes updated on pt. status. Pt. is saturating a small pad every hour. Pts. last bp at 1600 was 124/81 and she is asymptomatic. Orders received for methergine 0.2mg and update MD in one hour on pt. status. Report given to FAITH Calle.
[2024-09-18] VITALS (7 sets, daily range): BP systolic 109–122; BP diastolic 70–83; PULSE 84–111; RESP 16–21; TEMP 36.6–37.1; O2SAT 97–99
[2024-09-18] MEDS: RINGERS LACTATED 1000 ML 1,000 ML 125 ML IV (00:58)
[2024-09-18 07:12] LABS: Basophils % (Auto) 0 % (0-2.5); Eosinophils % (Auto) 0 % (0-10); Hematocrit 27.1 % (36.0-46.0); Hemoglobin 9.6 g/dL (12.0-16.0); Immature Granulocytes % (Auto) 1 % (0-0); Immature Granulocytes Auto 0.06 Thou/mm3 (0.00-0.00); Lymphocytes # (Auto) 1.9 Thou/mm3 (1.0-4.8); Lymphocytes % (Auto) 18 % (10-50); Mean Corpuscular HGB Conc 35.4 g/dl (31.0-37.0); Mean Corpuscular Hemoglobin 28.3 pg (25.0-35.0); Mean Corpuscular Volume 80 fL (80-100); Monocytes # (Auto) 0.8 Thou/mm3 (0.0-0.8); Monocytes % (Auto) 7 % (0-12); Neutrophils # (Auto) 8.1 Thou/mm3 (1.8-7.7); Neutrophils % (Auto) 74 % (37-80); Nucleated Red Blood Cell % 0 /100 WBC (0); Platelet Count 242 Thou/mm3 (140-440); RDW Standard Deviation 38.3 fL (36.4-46.3); Red Blood Count 3.39 Miln/mm3 (4.00-5.20)
--- NOTE | 2024-09-18 09:02 | ESPR_ITS ---
Subjective Subjective Interval history: Delivery type: Patient doing well this morning. No acute complaints. Ambulating, tolerating p.o. and voiding without difficulty. HTN/Pre-Eclampsia screen: No chest pain, shortness of breath, headache, visual changes, epigastric or right upper quadrant pain. Breast-feeding, lochia diminishing. Bowel: Flatus+/ Exam Vital Signs Temp Pulse Resp BP Pulse Ox O2 Del Method 98.4 F 95 18 122/78 97 Room Air 09/18/24 04:18 09/18/24 04:18 09/18/24 04:18 09/18/24 04:18 09/18/24 04:18 09/18/24 04:18 Constitutional Constitutional: no acute distress Routine HEENT Exam Head: Present normocephalic and atraumatic Eye: Present EOMI and PERRL ENT: Present mucous membranes moist Routine Neck Exam Neck: Present supple and trachea midline Routine Respiratory Exam Respiratory: Present chest non-tender, lungs clear, normal breath sounds and no resp distress Routine Cardiovascular Exam Cardiovascular: Present RRR Routine Abdominal Exam Abdominal: Present soft and normoactive bowel sounds Routine Extremities Exam Extremities: Present full ROM Routine Skin Exam Skin: Present intact, dry and warm Routine Neurological Exam Neurological: Present alert, oriented X3 and CN II-XII intact Routine Psychiatric Exam Psychiatric: Present normal affect and normal thought process Objective Labs 09/18/24 06:50 09/17/24 11:30 Labs: Laboratory Results - last 24 hr 09/17/24 09/18/24 11:30 06:50 WBC 7.3 11.0 D RBC 4.42 3.39 L Hgb 12.4 9.6 L D Hct 35.7 L 27.1 L MCV 81 80 MCH 28.1 28.3 MCHC 34.7 35.4 RDW Std Deviation 39.0 38.3 Plt Count 216 242 Neut % (Auto) 71 74 Lymph % (Auto) 22 18 [place] % (Auto) 5 7 Eos % (Auto) 1 0 Baso % (Auto) 0 0 Neut # (Auto) 5.2 8.1 H Lymph # (Auto) 1.6 1.9 [place] # (Auto) 0.4 0.8 Eos # (Auto) 0.1 0.0 Baso # (Auto) 0.0 0.0 Immature Gran # (Auto) 0.03 H 0.06 H Absolute Nucleated RBC 0.00 0.00 Immature Gran % 0 1 H Nucleated RBC % 0 0 PT 10.7 INR 1.0 APTT 31.7 Fibrinogen 567 H Sodium 138 Potassium 3.8 Chloride 106 Carbon Dioxide 20.1 Anion Gap 12 BUN 6 L Creatinine 0.5 L Estim Creat Clear Calc 208.1 eGFR > 60 BUN/Creatinine Ratio 12 Glucose 74 Calculated Osmolality 272 L Uric Acid 4.1 Calcium 8.9 Corrected Calcium 8.9 Total Bilirubin 0.3 AST 13 ALT 7 L Alkaline Phosphatase 169 H Total Protein 6.6 Albumin 4.0 Globulin 2.6 Albumin/Globulin Ratio 1.5 Ur Collection Type Clean Catch Urine Color Lt-Yellow Urine Clarity Clear Urine pH 6.5 Ur Specific [employer] [place] 1.020 Urine Protein Negative Urine Glucose (UA) Negative Urine Ketones 1+ A Urine Blood Negative Urine Nitrite Negative Urine Bilirubin Negative Urine Urobilinogen (Auto) Negative Ur Leukocyte Esterase Negative Urine RBC 3 Urine WBC 2 Ur Squamous Epith Cells 2 Urine Bacteria Rare Syphilis Serology Nonreactive Blood Type O Positive Antibody Screen NEGATIVE Crossmatch See Detail Blood Bank Wristband ID Yes Assessment & Plan Problem List (1) Hx of preeclampsia, prior , currently : Status: Acute (2) Previous section: Status: Acute Assessment and plan: 1. Continue routine /post-op care 2. Labs reviewed, cbc appropriate for surgical blood loss, repeat CBC ordered for 2 PM 3. Remove dressing/Meza 4. Encourage to ambulate, shower 5. Encourage PO intake, breast feeding Time Spent With Patient Time: Total time spent is greater than 50% in coordination of care (as documented) at patient's floor/unit and/or counseling patient:
[2024-09-18] MEDS: DOCUSATE SOD 100 MG CAPSULE PO (09:32)
[2024-09-18] MEDS: IBUPROFEN TAB 400 MG TABLET 800 MG PO (09:36)
[2024-09-18 14:03] LABS: Basophils % (Auto) 0 % (0-2.5); Eosinophils % (Auto) 1 % (0-10); Hematocrit 25.1 % (36.0-46.0); Immature Granulocytes % (Auto) 1 % (0-0); Immature Granulocytes Auto 0.05 Thou/mm3 (0.00-0.00); Lymphocytes % (Auto) 24 % (10-50); Mean Corpuscular HGB Conc 35.1 g/dl (31.0-37.0); Mean Corpuscular Hemoglobin 28.2 pg (25.0-35.0); Mean Corpuscular Volume 80 fL (80-100); Monocytes # (Auto) 0.6 Thou/mm3 (0.0-0.8); Monocytes % (Auto) 7 % (0-12); Neutrophils # (Auto) 5.6 Thou/mm3 (1.8-7.7); Neutrophils % (Auto) 67 % (37-80); Nucleated Red Blood Cell % 0 /100 WBC (0); Platelet Count 202 Thou/mm3 (140-440); RDW Standard Deviation 38.3 fL (36.4-46.3); Red Blood Count 3.12 Miln/mm3 (4.00-5.20); White Blood Count 8.4 Thou/mm3 (3.6-11.0)
[2024-09-18 14:13] LABS: Hemoglobin 8.8 g/dL (12.0-16.0)
--- NOTE | 2024-09-18 14:51 | PC.NURSE ---
[address] Reyes of patient's updated H/H labs, no new orders at this time.
--- NOTE | 2024-09-18 18:12 | PC.NURSE ---
[address] Reyes to inform him of pt heart rate in the 120s, pt stated she had drank an energy drink.
[2024-09-18] MEDS: HYDROcodone/APAP 5/325 TABLET 1 TAB PO (18:17)
[2024-09-19] MEDS: HYDROcodone/APAP 5/325 TABLET 1 TAB PO ×2 (01:12→14:24)
[2024-09-19] MEDS: Milk Of Magnesia Susp 30 ML UDC PO (03:27)
[2024-09-19 03:35] VITALS: BP 112/76; PULSE 91; RESP 20; TEMP 36.4; O2SAT 97
[2024-09-19 07:32] VITALS: BP 117/78; PULSE 84; RESP 20; TEMP 36.5; O2SAT 98
[2024-09-19 08:20] LABS: Basophils % (Auto) 0 % (0-2.5); Eosinophils # (Auto) 0.1 Thou/mm3 (0.0-0.5); Eosinophils % (Auto) 1 % (0-10); Hematocrit 23.5 % (36.0-46.0); Immature Granulocytes % (Auto) 1 % (0-0); Immature Granulocytes Auto 0.05 Thou/mm3 (0.00-0.00); Lymphocytes % (Auto) 27 % (10-50); Mean Corpuscular HGB Conc 33.6 g/dl (31.0-37.0); Mean Corpuscular Volume 83 fL (80-100); Monocytes # (Auto) 0.5 Thou/mm3 (0.0-0.8); Monocytes % (Auto) 7 % (0-12); Neutrophils # (Auto) 4.6 Thou/mm3 (1.8-7.7); Neutrophils % (Auto) 64 % (37-80); Nucleated Red Blood Cell % 0 /100 WBC (0); Platelet Count 185 Thou/mm3 (140-440); RDW Standard Deviation 41.1 fL (36.4-46.3); Red Blood Count 2.82 Miln/mm3 (4.00-5.20); White Blood Count 7.2 Thou/mm3 (3.6-11.0)
--- NOTE | 2024-09-19 08:27 | PD.LDPPPRG ---
Subjective Subjective Interval history: Delivery type: C-Secion, 1 episode of tachycardia after patient consumed an energy drink, now resolved Patient doing well this morning. No acute complaints. Ambulating, tolerating p.o. and voiding without difficulty. HTN/Pre-Eclampsia screen: No chest pain, shortness of breath, headache, visual changes, epigastric or right upper quadrant pain. Breast-feeding, lochia diminishing. Bowel: Flatus+/ BM+ Exam Vital Signs Temp Pulse Resp BP Pulse Ox O2 Del Method 97.7 F 84 20 117/78 98 Room Air 09/19/24 07:32 09/19/24 07:32 09/19/24 07:32 09/19/24 07:32 09/19/24 07:32 09/19/24 07:32 Constitutional Constitutional: no acute distress Routine HEENT Exam Head: Present normocephalic and atraumatic Eye: Present EOMI and PERRL ENT: Present mucous membranes moist Routine Neck Exam Neck: Present supple and trachea midline Routine Respiratory Exam Respiratory: Present chest non-tender, lungs clear, normal breath sounds and no resp distress Routine Cardiovascular Exam Cardiovascular: Present RRR Routine Abdominal Exam Abdominal: Present soft and normoactive bowel sounds Routine Extremities Exam Extremities: Present full ROM Routine Skin Exam Skin: Present intact, dry and warm Routine Neurological Exam Neurological: Present alert, oriented X3 and CN II-XII intact Routine Psychiatric Exam Psychiatric: Present normal affect and normal thought process Objective Labs 09/18/24 13:35 09/17/24 11:30 Labs: Laboratory Results - last 24 hr 09/18/24 13:35 WBC 8.4 RBC 3.12 L Hgb 8.8 L Hct 25.1 L MCV 80 MCH 28.2 MCHC 35.1 RDW Std Deviation 38.3 Plt Count 202 D Neut % (Auto) 67 Lymph % (Auto) 24 [place] % (Auto) 7 Eos % (Auto) 1 Baso % (Auto) 0 Neut # (Auto) 5.6 Lymph # (Auto) 2.0 [place] # (Auto) 0.6 Eos # (Auto) 0.0 Baso # (Auto) 0.0 Immature Gran # (Auto) 0.05 H Absolute Nucleated RBC 0.00 Immature Gran % 1 H Nucleated RBC % 0 Assessment & Plan Problem List (1) Hx of preeclampsia, prior , currently : Status: Acute (2) Previous section: Status: Acute (3) delivery delivered: Status: Acute Assessment and plan: PPD/POD#2 1. Continue routine care 2. Transition to PO meds. 3. Encourage to ambulate/ breast-feed 4. Anticipate discharge home today. (4) Other acute postprocedural pain: Status: Acute Time Spent With Patient Time: Total time spent is greater than 50% in coordination of care (as documented) at patient's floor/unit and/or counseling patient:
--- NOTE | 2024-09-19 08:29 | OBDSUM_ITS ---
Data ([place]) Data Hx Section: Yes : 2 Term: 0 : 0 Livin Abortions: Spontaneous & Theraputic: 0 Delivery Data ([place]) Labor Data ROM date: 09/17/24 ROM time: 13:27 Amniotic membrane rupture type: Artificial Amniotic fluid description: Clear Delivery Data Onset of labor date: 09/17/24 Onset of labor time: 13:27 Complete dilation date: 09/17/24 Complete dilation time: 13:27 [place] delivery date: 09/17/24 [place] delivery time: 13: Placenta delivery date: 09/17/24 Placenta delivery time: 13:28 Stage 1 total time: Labor - Stage 1 Duration 0 minutes Delivered by: Yvan Reyes Delivery nurse: Lili Banegas RN [place] nurse: FAITH Peraza [email or web address], RN Transit Manager at delivery: No Support person(s) at delivery: FOB Delivery Method Delivery method: Low Transverse Presentation: Vertex Anesthesia Type Anesthesia Type: Spinal Anesthesia type: Spinal Placenta Placenta delivery description: Manual Removal Cord blood sent to lab: Yes cord blood collection: Cord Blood Type Data ([place]) Data order: 1 [place]'s gender: Male Identification band number: [id number] weight (gms): 3310 g Weight (pounds): 7 lbs and 4.8 ozs [place] length: 48 cm 1 minute: 9 5 minutes: 9
--- NOTE | 2024-09-19 08:29 | ESDS_ITS ---
DS: Providers Provider Date of admission: 09/17/24 10:22 Primary care physician: Maxwell Wise MD Admitting Provider: Yvan Reyes MD Attending Provider on Admission: Yvan Reyes MD Consults: 09/17/24 16:53 Referral Routine Comment: Attending Provider on DC: Yvan Reyes MD Discharging Provider: Yvan Reyes MD DS: Diagnosis Discharge Diagnosis (1) delivery delivered: Status: Acute (2) Other acute postprocedural pain: Status: Acute (3) Hx of preeclampsia, prior , currently : Status: Acute (4) Previous section: Status: Acute Problem List Completed Was Problem List Reviewed/Reconciled?: Yes Summary/Hosp Course Brief History: Marlene Gauthier is a 24-year-old female, , presenting at 39 weeks and 2 days gestation for a scheduled repeat . She has a history of severe pre eclampsia in her previous delivery, but her current has been uncomplicated. The patient's estimated due date is September 22, 2024, based on her last menstrual period of December 17, 2023. She transferred care to this office in the third trimester from Dr. Pineda at [facility]. Marlene is currently taking aspirin and Procardia 30 XL for chronic hypertension. Marlene denies any contractions, leakage of fluid, or vaginal bleeding. She reports adequate movements. The patient also denies any preeclampsia symptoms, including headache, right upper quadrant pain, or epigastric pain. Medications and Supplements - Aspirin - Procardia 30 XL - For chronic hypertension Review of Systems General: Negative for fever, chills. Cardiovascular: Negative for contractions. Gastrointestinal: Negative for right upper quadrant pain, epigastric pain. Genitourinary: Negative for leakage of fluid, vaginal bleeding. Neurological: Negative for headache. Peripartum Data Delivery Method: Low Transverse Procedures: Procedures Operation Date: 09/17/24 12:45 Actual Procedure Side Surgeon p in OB Not Applicable Yvan Reyes MD Time Spent with Patient Time attestation: Total time spent providing and/or coordinating discharge services: Exam Vital Signs Temp Pulse Resp BP Pulse Ox O2 Del Method 97.7 F 84 20 117/78 98 Room Air 09/19/24 07:32 09/19/24 07:32 09/19/24 07:32 09/19/24 07:32 09/19/24 07:32 09/19/24 07:32 Discharge Plan Plan Patient Disposition: HOME (Self Care) Patient condition on transfer: Stable Prescriptions/Referrals Prescriptions/Med Rec: New hydrocodone-acetaminophen 5-325 mg tablet 1 tab PO Q6H MDD 4 PRN (Reason: pain) 7 Days Qty: 28 0RF docusate sodium [Stool Softener] 100 mg capsule 100 mg PO QDAY 30 Days Qty: 30 0RF ibuprofen 600 mg tablet 600 mg PO Q6H MDD 4 PRN (Reason: fever or pain) 10 Days Qty: 40 0RF amoxicillin-pot clavulanate 875-125 mg tablet 1 tab PO BID 7 Days Qty: 14 0RF Discontinued aspirin [Adult Aspirin Regimen] 81 mg tablet,delayed release (DR/EC) 81 mg PO QDAY Qty: 60 1RF nifedipine [Procardia XL] 30 mg tablet extended release 24hr 30 mg PO QDAY 30 Days Qty: 30 1RF Referrals: Maxwell Wise MD [Primary Care Provider] - Yvan Reyes MD [Physician] - Patient/Caregiver Discharge Instructions Discharge Activity: activity as tolerated Education Materials: Healthy Weight Loss After , Pain After Childbirth, Understanding Blues, Eclampsia After Childbirth, After Delivery [place] Concerns, Breast Care After , After a , C Section Dc, Hemorrhage Print Language: [place] Stand Alone Forms: Jessica Award Info., Patient Portal Info Letter, DC from Surgery Discharge Order Discharge Orders: Discharge (Routine); Ordered 09/19/24 Ordered By: Yvan Reyes Planned Discharge Date 09/19/24
[2024-09-19 08:44] LABS: Hemoglobin 7.9 g/dL (12.0-16.0)
[2024-09-19] MEDS: DOCUSATE SOD 100 MG CAPSULE PO (09:07)
--- NOTE | 2024-09-19 10:34 | CHAP ---
Mother was visited by the Spiritual Care Volunteer who prayed Baby Dafter for . (Volunteer was in the hospital from 09:30-10:34).
--- NOTE | 2024-09-19 11:32 | PC.NURSE ---
0735: PATIENT CONSENTED FOR TDAP VACCINE ON ADMISSION BUT WHEN SUPERVISOR WRAPPING ROOM OFFERED IT PRIOR TO DISCHARGE, PATIENT STATED SHE WOULD JUST GET IT LATER IN OFFICE AT FOLLOW UP VISIT.
[2024-09-19] MEDS: IBUPROFEN TAB 400 MG TABLET 800 MG PO (13:27)
== END 2024-09-19 14:35 | disposition home or self-care (01) | DRG 540 ==
LOC: S4SX 10:36 → S4NX 13:06
PROVIDERS: Obstetrics & Gynecology; Admitting Provider Obstetrics & Gynecology; PCP Family Medicine; Visit Provider Obstetrics & Gynecology
PROC: 10D00Z1 Extraction of Products of Conception, Low, Open Approach (ICD-10-PCS; CPT 59514; principal; 2024-09-17 12:30)
DX: O34.211 Maternal care for low transverse scar from previous cesarean delivery (principal); Z3A.39 39 weeks gestation of pregnancy; Z37.0 Single live birth; O13.4 Gestational [pregnancy-induced] hypertension without significant proteinuria, complicating childbirth; G89.18 Other acute postprocedural pain; K66.0 Peritoneal adhesions (postprocedural) (postinfection)
CPT/HCPCS: 36415; 80053; 81001; 84550; 85025; 85384; 85610; 85730; 86780; 86850; 86900; 86901; 86923; A4314; A4649; J0689; J1100; J1885; J2274; J2371; J2405; J2590; J3010; J3490; J7120; A9270; J2270

== ENCOUNTER 2024-10-01 10:15 | Outpatient (AMB) | payer MEDICAID, SELFPAY ==
[2024-10-01 10:28] VITALS: BP 129/84; PULSE 94; RESP 17; TEMP 36.3; O2SAT 98
--- NOTE | 2024-10-01 10:28 | AMBOBPPN_ITS ---
Vital Signs 10/01/24 10:28 Weight 104.099 kg Weight Measurement Method Standing Scale BP 129/84 Blood Pressure Source Automatic Cuff Blood Pressure Location Right Upper Arm Position Sitting Respiration 17 Pulse 94 Pulse Source Monitor Temp 97.3 F Temp Source Temporal Artery Scan Pulse Oximetry (%) 98 Oxygen Delivery Method Room Air Allergies/Home Meds Allergies & Medications Allergies No Known Allergies Allergy (Verified 09/12/24 11:15) Intake Visit Data Collection New Patient or Established: Established Patient (seen at [facility] within 3 years) Reason for Visit:: FOLLOW UP Consent obtained for Telemed Visit: No Seen by Clinical Staff ONLY (RN/MA): No Concrete Sculptor Required: No Do You Feel Safe at Home: Yes Authorities Contacted: N/A PCP or OBGYN visit in last 3 months: Yes Date of Last PCP or OBGYN visit: 09/19/24 Hx Now: No Are you currently on any form of Control: No Pain Present Currently: Yes Pain Location: Back and Head Pain scale:: 5 Smoking Status Smoking Status: 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 Past Medical History: No Hx Neurological Disorders, No Hx Cardiac Disorders, No Hx Cancer, No Hx Blood Disorders, No Hx Gastrointestinal Disorders, No Hx Renal Disease, No Hx Diabetes Mellitus Type 1 and No Hx Diabetes Mellitus Type 2 Questionnaires Covid-19 Vaccine Questionnaire Has patient been vacinated for Covid-19 Have you been vacinated for Covid-19: Yes Social History Living Situation History Lives With: Family Housing: House Tobacco History Smoking Status: Never smoker Second Hand Smoke Exposure: No Alcohol History Alcohol Intake: Former Alcohol Intake Frequency: holidays/special occasions only Alcohol Intake Frequency Other:: before Domestic Abuse History Do You Feel Safe at Home: Yes EPDS - PP Depression Screening [place] Pospartum Depression Screen I have been able to laugh and see the funny side of things: (0) As much as I always could I have looked forward with enjoyment to things: (0) As much as I ever did I have blamed myself unnecessarily when things went wrong: (0) No, never I have been anxious or worried for no good reason: (0) No, not at all I have felt scared or panicky for no very good reason: (0) No, not at all Things have been getting on top of me: (0) No, I have been coping as well as ever I have been so unhappy that I have had difficulty sleeping: (0) No, not at all I have felt sad or miserable: (0) No, not at all I have been so unhappy that I have been crying: (0) No, never The thought of harming myself has occurred to me: (0) Never HPI Interval History: Patient reports doing well overall at her 2-week postoperative visit following a section performed on September 17, 2024. She denies any constipation or diarrhea. Patient confirms that she is her son, who is also doing well. Her blood pressure has remained stable, and she has not developed preeclampsia. The patient mentions that the surgical tape from her incision is still in place. She is a 24-year-old female with a history of A0 L1. She delivered via C- section on September 17, 2024, with no complications of preeclampsia noted . Patient is taking vitamins or multivitamin while to help increase breast milk production. She has been encouraged to go for walks and increase exercise. The patient is advised to continue taking vitamins or multivitamins while . Delivery type: Delivery date: 09/11/24 Delivering provider: Amy Delivery complications: No Exam Narrative Physical exam: - Abdomen: Incision site from examined. Tape removed from incision. Incision appears well-healed. Office Procedures OB Clinic LOC & Office Proc's Nursing/Assessment Patient Status: Established Patient OB Clinic Nursing Assessment: Medication Reconciliation, Update PMH in EMR and Vital Signs OB Clinic Coordination of Care: Complex Care and Chronic Disease 1-5, Education Complex Pt/Fam, Consent,records obtained, informed consent, 4+ Authorizations needed and Staff clarify orders Established Patient Charge Established Patient Point Assignment: 115 Post Follow-up Visit Post Follow up Visit: Yes Assessment & Plan Diagnosis / Problem List (1) delivery delivered: Status: Acute (2) care following delivery: Status: Acute Plan Status post section: - Incision site healing well, surgical tape removed during visit. - Blood pressure stable, no signs of preeclampsia. - No gastrointestinal issues reported. - Continue using abdominal binder until 1 month postoperative. - Restrict lifting to less than 30 pounds. - Abstain from sexual intercourse until further evaluation. - Encourage gradual increase in physical activity, including walking. - Follow up in 1 month (6 weeks postoperative) for further evaluation and discussion of control options. care: - Patient reports . - Continue vitamins or multivitamin supplementation to support . - Provide education on weight management through diet and exercise.
== END 2024-10-01 10:36 | disposition home or self-care (01) ==
LOC: HODSOBC 10:15
PROVIDERS: PCP Obstetrics & Gynecology; Referring Provider Obstetrics & Gynecology; Supervising Provider Obstetrics & Gynecology; Visit Provider Obstetrics & Gynecology
DX: Z39.2 Encounter for routine postpartum follow-up (principal)

== ENCOUNTER 2024-11-03 10:45 | Outpatient (AMB) | payer MEDICAID, SELFPAY ==
[2024-11-03 11:27] VITALS: BP 125/87; PULSE 86; RESP 17; TEMP 36.4; O2SAT 98; BMI 40.0
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
== END 2024-11-03 11:56 | disposition home or self-care (01) ==
LOC: HODSOBC 10:45
PROVIDERS: Supervising Provider Obstetrics & Gynecology; Visit Provider Obstetrics & Gynecology
DX: Z39.2 Encounter for routine postpartum follow-up (principal)
CPT/HCPCS: Z1038